=== PATIENT | male | born 1975 | race Hispanic/Latino ===

== ENCOUNTER → 2020-04-08 | Day surgery (SDC) | payer OTHER ==
[2020-04-03 13:56] LABS: ANION GAP 12.8 mmol/L (8-16); BLOOD UREA NITROGEN 19 mg/dL (7-26); BUN/CREATININE RATIO 19 (6-25); CALCIUM 9.3 mg/dL (8.4-10.2); CARBON DIOXIDE 25 mmol/L (22-29); CHLORIDE 104 mmol/L (98-107); CREATININE, SERUM 0.98 mg/dL (0.72-1.25); EST GLOMERULAR FILTRATION RATE > 60 ML/MIN (60-); GLUCOSE 103 mg/dL (74-118); POTASSIUM 4.8 mmol/L (3.5-5.1); SODIUM 137 mmol/L (136-145)
[~2020-04-08] MED LIST: BUPIVACAINE 0.5%/EPI 30 ML SDV INJ ONE; CEFAZOLIN SOD 1 GM/NS 50ML 100 ML IV ONE; DEXAMETHASONE SOD PHOS INJ 4 MG/ML VIAL ONE; FENTANYL CITRATE/PF 100MCG/2 ML INJ ONE; JANUMET 50-1,01 EACH PO; KETOROLAC TROMETHAMINE 30 MG/ML VIAL ONE; LIDOCAINE HCL 2% LOCAL INJ 5 ML SDV VIAL INJ ONE; MIDAZOLAM HCL 2 MG/2 ML VIAL ONE; ONDANSETRON HCL INJ 2MG/ML 2ML 2 MG/ML VIAL ONE; PANTOPRAZOLE SO40 MG PO; PROPOFOL IV EMULSION 10 MG/ML 20 ML VIAL ONE; SEVOFLURANE INHAL SOLN 250 ML PEN BTL ONE; SIMVASTATIN10 MG PO
[2020-04-08 09:15] VITALS: BP 115/76
--- NOTE | 2020-04-10 20:05 | Operative Report ---
DATE OF PROCEDURE: 04/08/2020 SURGEON: Vic Hernandez MD PREOPERATIVE DIAGNOSES: 1. Left knee lateral meniscus tear. 2. Left knee degenerative joint disease of the knee. POSTOPERATIVE DIAGNOSES: 1. Left knee lateral meniscus tear. 2. Left knee degenerative joint disease of the knee. OPERATION PROCEDURE PERFORMED: The patient underwent a left knee exam under anesthesia, left knee arthroscopy, left knee partial lateral meniscectomy, left knee chondroplasty of the patella, trochlea, the medial femoral condyle, the medial tibial plateau, the lateral femoral condyle, and lateral tibial plateau. COMMUNITY DEVELOPMENT COORDINATOR: None. ANESTHESIA: General endotracheal intubation anesthesia. IV FLUIDS: Per anesthesia record. COMPLICATIONS: None. BRIEF DESCRIPTION OF THE PATIENT'S OPERATIVE PROCEDURE: Mr. Grande was taken to the operating room and placed in supine position on the operating table. Following induction of general anesthesia as well as the endotracheal intubation, the patient's left lower extremity was examined under anesthesia. He was found to have a mild effusion within the knee joint, but otherwise ligamentously stable knee. The patient's lower extremities were draped in a standard surgical fashion. A two-port technique used to provide this patient arthroscopic evaluation of the knee joint. Examination of the suprapatellar pouch and medial and lateral gutters found no evidence of loose bodies. There was however evidence of chondromalacia of the patella and trochlear surfaces. The scope was advanced to medial compartment. Examination of the medial compartment demonstrated chondromalacia articulating surfaces. A shaver was placed within the knee and chondroplasties of the medial femoral condyle and medial tibial plateau were performed at this time. The scope was advanced to the intercondylar notch and the anterior cruciate ligament was identified and found to be intact. The scope was advanced into the lateral compartment. The tear of the lateral meniscus was encountered. A combination of biting forceps and motorized shaver were used to resect the torn portion of meniscus. There was also chondromalacia of the articulating surfaces. Chondroplasties of the lateral femoral condyle and lateral tibial plateau were performed at this time. The scope was then placed in suprapatellar pouch and the chondroplasty of the patella and trochlea were performed. The knee was deflated with sterile normal saline. The portal sites were closed using 4-0 nylon suture. The portal sites as well as the knee itself were injected with 0.5% Marcaine with epinephrine. Sterile dressings were applied and the patient was then awakened and taken to postanesthesia care in stable condition. MD VIRIDIANA Hardy/DILLON /[id number]
== END | disposition home or self-care (01) ==
LOC: OR 05:19
PROVIDERS: ATTEND Specialist
DX: S83.262A Peripheral tear of lateral meniscus, current injury, left knee, initial encounter (principal); M17.12 Unilateral primary osteoarthritis, left knee; Z01.810 Encounter for preprocedural cardiovascular examination; Z01.812 Encounter for preprocedural laboratory examination; Z11.59 Encounter for screening for other viral diseases; E11.9 Type 2 diabetes mellitus without complications; G47.33 Obstructive sleep apnea (adult) (pediatric); E78.00 Pure hypercholesterolemia, unspecified; K21.9 Gastro-esophageal reflux disease without esophagitis
CPT/HCPCS: 29881; 36415 ×2; 80048; 82948; 87635; 93005; J0690; J1100; J1885; J2001; J2250; J2405; J2704; J3010